=== PATIENT | male | born 1975 | race Caucasian/White ===

== ENCOUNTER 2021-03-20 06:00 | Emergency (ER) | payer MEDICAID ==
[~2021-03-20] VITALS: Ht 170.2 cm; Wt 72.6 kg
[2021-03-20 06:12] VITALS: BP 125/78
--- NOTE | 2021-03-20 06:20 | NUR ---
PATIENT TO LOBBY
[2021-03-20] MEDS ORDERED: MORPHINE SULFATE 4 MG/ML SYR IVP ONE (06:45)
[2021-03-20] MEDS ORDERED: ONDANSETRON 4 MG/2 ML VIAL IVP ONE (06:45)
[2021-03-20] MEDS ORDERED: NACL 0.9% 1,000 ML IV ONE (06:45)
[2021-03-20] MEDS ORDERED: ONDANSETRON 4 MG/2 ML VIAL ONE (08:00)
[2021-03-20] MEDS ORDERED: MORPHINE SULFATE 4 MG/ML SYR ONE (08:11)
--- NOTE | 2021-03-20 09:30 | NUR ---
Pt at CT
[2021-03-20 09:41] LABS: BASOPHILS % (AUTO) 0.7 % (0.0-2.0); EOSINOPHILS # (AUTO) 0.1 K/uL (0-0.4); EOSINOPHILS % (AUTO) 1.8 % (0.0-4.0); HEMATOCRIT 37.1 % (36-52); HEMOGLOBIN 12.4 g/dL (12.0-18.0); LYMPHOCYTES # (AUTO) 1.7 K/uL (2.0-11.5); LYMPHOCYTES % (AUTO) 26.4 % (20.5-51.1); MEAN CORPUSCULAR HEMOGLOBIN 32 pg (27-31); MEAN CORPUSCULAR HGB CONC 34 g/dL (33-37); MONOCYTES # (AUTO) 0.7 K/uL (0.8-1.0); MONOCYTES % (AUTO) 10.9 % (1.7-9.3); NEUTROPHILS # (AUTO) 3.9 K/uL (1.8-7.7); NEUTROPHILS % (AUTO) 60.2 % (42.2-75.2); PLATELET COUNT (AUTO) 187 K/uL (140-450); RED BLOOD CELL COUNT(AUTO) 3.86 MIL/uL (4.20-6.10); RED CELL DISTRIBUTION WIDTH 14.1 % (11.6-13.7); WHITE BLOOD COUNT (AUTO) 6.5 K/uL (4.8-10.8)
[2021-03-20 09:51] LABS: PROTHROMBIN TIME 8.9 secs (10.8-13.4)
[2021-03-20 09:53] LABS: ALBUMIN 3.7 g/dL (3.4-5.0); ANION GAP 13.2 (8-16); CARBON DIOXIDE 28.2 mmol/L (21-32); CREATININE 0.8 mg/dL (0.6-1.3); POTASSIUM 4.4 mmol/L (3.5-5.1); TOTAL BILIRUBIN 0.7 mg/dL (0.0-1.0)
--- NOTE | 2021-03-20 10:37 | NUR ---
PATIENT IN BED RESTING, RR EVEN AND UNLABORED.
--- NOTE | 2021-03-20 10:44 | NUR ---
URINAL AT BEDSIDE, ENCOURAGED TO URINATE FOR UA SAMPLE.
[2021-03-20] MEDS ORDERED: IBUP-2213 PO (11:11)
[2021-03-20] MEDS ORDERED: LID5T TP (11:11)
[2021-03-20] MEDS ORDERED: ACET-8386 PO ×2 (11:11→11:12)
[2021-03-20] MEDS ORDERED: ACET-2619 PO (11:12)
--- NOTE | 2021-03-20 11:35 | NUR ---
Patient discharged with v/s stable. Written and verbal after care instructions ABOUT LUMBAR SPINE FRACTURE given and explained. Patient alert, oriented and verbalized understanding of instructions. Ambulatory with steady gait. All questions addressed prior to discharge. ID band removed. Patient advised to follow up with PMD. Rx of TYLENOL, NORCO 5-325MG, IBUPROFEN, AND LIDOCAINE PATCH given. Patient educated on indication of medication including possible reaction and side effects. Opportunity to ask questions provided and answered.
[2021-03-20 11:36] VITALS: BP 108/71
== END 2021-03-20 11:35 | disposition home or self-care (01) ==
LOC: MED 06:00
DX: S32.018A Other fracture of first lumbar vertebra, initial encounter for closed fracture (principal); S32.028A Other fracture of second lumbar vertebra, initial encounter for closed fracture; S32.038A Other fracture of third lumbar vertebra, initial encounter for closed fracture; S22.42XA Multiple fractures of ribs, left side, initial encounter for closed fracture; F17.200 Nicotine dependence, unspecified, uncomplicated; Z79.899 Other long term (current) drug therapy; Z79.1 Long term (current) use of non-steroidal anti-inflammatories (NSAID); Z79.891 Long term (current) use of opiate analgesic; V19.9XXA Pedal cyclist (driver) (passenger) injured in unspecified traffic accident, initial encounter; Y93.89 Activity, other specified; Y92.410 Unspecified street and highway as the place of occurrence of the external cause; Y99.8 Other external cause status
CPT/HCPCS: 36415; 71260; 72128; 72131; 74177; 80053; 83690; 85025; 85610; 90471; 90715; 96361; 96374; 96375; 99285; J2270; J2405; J7030; Q9967